=== PATIENT | male | born 1980 | race Caucasian/White ===

== ENCOUNTER 2016-09-09 20:17 | Emergency (ER) | payer OTHER ==
[~2016-09-09] VITALS: Ht 175.3 cm; Wt 93.1 kg
[~2016-09-09 20:17] MED LIST: KEFLEX500 MG PO
[2016-09-09 21:13] LABS: HEMATOCRIT 43.2 % (38.0-50.0); MCH 31.6 PG (29.0-34.0); MCHC 36.6 G/DL (30.0-36.0); MCV 86.4 FL (86-99); PLATELET COUNT 264 K/uL (156-360); RBC DIS.WIDTH-CV 12.7 % (11.8-14.6); RBC DIS.WIDTH-SD 38.9 % (39-53); WHITE BLOOD COUNT 8.6 K/uL (4.1-10.2)
[2016-09-09 21:25] LABS: CHLORIDE 105 mEq/L (99-109); POTASSIUM 3.7 mEq/L (3.7-5.4); SODIUM 139 mEq/L (136-147)
[2016-09-09 21:27] LABS: GLUCOSE 110 mg/dL (70-99)
[2016-09-09 21:28] LABS: ANION GAP 12 MEQ/L (2-14)
[2016-09-09 21:31] LABS: GFR ESTIMATE (CALCULATED) > 59 mL/min/
[2016-09-09 21:32] LABS: UREA NITROGEN (BUN) 11 mg/dL (9-23)
[2016-09-09 22:27] LABS: ADD MIUA? NO; BILIRUBIN NEGATIVE; BLOOD NEGATIVE; COLOR YELLOW ((YELLOW)); GLUCOSE (STRIP) NEGATIVE; KETONES NEGATIVE; LEUKOCYTES NEGATIVE; NITRITE NEGATIVE; PH, URINE 6.5 (5-8); PROTEIN (STRIP) NEGATIVE; SPECIFIC GRAVITY 1.012 (1.000-1.030); UCUL ADDED? NO; UROBILINOGEN 0.2 MG/DL (0.2-1.0)
[2016-09-09] MEDS ORDERED: FLEXERIL10 MG PO (22:40)
[2016-09-09] MEDS ORDERED: ULTRAM50 MG PO (22:40)
[2016-09-09] MEDS ORDERED: FLOMAX0.4 MG PO (22:40)
[2016-09-09 23:03] VITALS: BP 124/84
== END 2016-09-09 23:04 | disposition home or self-care (01) ==
LOC: RME 20:17 → EME 20:17 → RME 23:04
DX: R10.9 Unspecified abdominal pain (principal); N20.0 Calculus of kidney; Z87.442 Personal history of urinary calculi; F17.200 Nicotine dependence, unspecified, uncomplicated
CPT/HCPCS: 74176; 80048; 81003; 85027; 99281; 99284; J1885

== ENCOUNTER 2016-12-07 13:35 | Emergency (ER) | payer OTHER ==
[~2016-12-07] VITALS: Ht 175.3 cm; Wt 89.5 kg
[~2016-12-07 13:35] MED LIST changes: +FLEXERIL10 MG PO; +FLOMAX0.4 MG PO; +ULTRAM50 MG PO
[2016-12-07 13:51] VITALS: BP 127/84
[2016-12-07] MEDS ORDERED: MOTRIN600 MG PO (14:38)
[2016-12-07] MEDS ORDERED: FLEXERIL10 MG PO (14:38)
== END 2016-12-07 14:55 | disposition home or self-care (01) ==
LOC: EME 13:35
DX: S43.402A Unspecified sprain of left shoulder joint, initial encounter (principal); X50.9XXA Other and unspecified overexertion or strenuous movements or postures, initial encounter; Y93.11 Activity, swimming; Y93.73 Activity, racquet and hand sports
CPT/HCPCS: 99281; 99284